=== PATIENT | male | born 1985 | race African-American/Black ===

== ENCOUNTER 2024-04-18 16:24 | Emergency (ER) | payer SELFPAY ==
[2024-04-18] MEDS ORDERED: Boostrix 0.5 ML (Tdap) VIAL (>/=7 yrs of age) ONE (16:36)
== END 2024-04-18 16:55 | disposition home or self-care (01) ==
LOC: ERS 16:24
DX: S09.90XD Unspecified injury of head, subsequent encounter (principal); F17.210 Nicotine dependence, cigarettes, uncomplicated; Z23 Encounter for immunization; W22.8XXD Striking against or struck by other objects, subsequent encounter
CPT/HCPCS: 90471; 90715

== ENCOUNTER 2024-06-06 23:01 | Emergency (ER) | payer OTHER, SELFPAY ==
[2024-06-07] MEDS ORDERED: Lidocaine 1% w/Epinephrine 1:100K 20 ML VIAL ONE (02:34)
== END 2024-06-07 03:12 | disposition home or self-care (01) ==
LOC: ERS 23:01
DX: S51.812A Laceration without foreign body of left forearm, initial encounter (principal); F17.210 Nicotine dependence, cigarettes, uncomplicated; W13.0XXA Fall from, out of or through balcony, initial encounter
CPT/HCPCS: 12002; 99282

== ENCOUNTER 2024-06-22 17:35 | Emergency (ER) | payer SELFPAY | END 2024-06-22 18:17 | disposition home or self-care (01) | LOC: ERS 17:35 | DX: S51.812D Laceration without foreign body of left forearm, subsequent encounter (principal); F17.210 Nicotine dependence, cigarettes, uncomplicated ==